=== PATIENT | female | born 1995 | race Two or more races ===

== ENCOUNTER 2018-02-17 21:54 | Emergency (ER) | payer SELFPAY ==
--- NOTE | 2018-02-17 22:03 | PDOC ---
Rapid Medical Evaluation Chief Complaint: Vaginal Bleeding Time Seen by Provider: 02/17/18 21:58 Medical Evaluation: 02/17/18 21:58 vaginal bleeding and spotting x 1 month has an IUD in place. patient also c/o insect bite to right foot. denies fever/ chills O:patient alert ox3. erythema to insect bite on right ankle A: insect bite; vaginal bleeding P: UA/ urine patient to the ER for further management of care.
[2018-02-17 22:04] VITALS: BP 100/60; PULSE 77; TEMP 99; BMI 36.2
[2018-02-17 22:21] LABS: HCG,QUALITATIVE URINE NEGATIVE; URINE APPEARANCE SLCLOUDY; URINE BILIRUBIN NEGATIVE (<2.0 mg/dL); URINE COLOR YELLOW; URINE GLUCOSE (UA) NEGATIVE (NEGATIVE); URINE KETONE NEGATIVE (NEGATIVE); URINE LEUK ESTERASE TRACE (NEGATIVE); URINE NITRITE NEGATIVE (NEGATIVE); URINE PROTEIN NEGATIVE (NEGATIVE)
--- NOTE | 2018-02-17 22:21 | PDOC ---
History of Present Illness - General Chief Complaint: Vaginal Bleeding Stated Complaint: VAGINAL BLEEDING,BITE Time Seen by Provider: 02/17/18 21:58 History Source: Patient Exam Limitations: No Limitations - History of Present Illness Travel History: No Initial Comments: 02/17/18 22:30 Patient came for evaluation of intermittent bleeding, irregular menses for the past few months. has been spotting now for approximately 20 days in the past 2 days has gotten 6 slightly worse needing to use 2-3 tampons daily. Denies cramping, fevers, possibility for . has been under a lot of stress, recently moved from [place] does not have physician or in states insurance. cousin came for evaluation for bleeding with and she thought she might as well get "checked out" 02/17/18 22:33 Timing/Duration: reports: getting worse, changing over time, intermittent Quality: reports: mild. denies: severe, cramping Abdominal Pain Onset Location: reports: generalized abdomen Pain Radiation: reports: no radiation Alleviating Factors: improves with: None Past History - Travel Traveled outside of the country in the last 30 days: No Close contact w/someone who was outside of country & ill: No - Past Medical History Home Medications: Ambulatory Orders NK [No Known Home Medication] 02/17/18 Asthma: Yes COPD: No Psychiatric Problems: Yes (bipolar, PTSD, anxiety) - Suicide/Smoking/Psychosocial Hx Smoking History: Current every day smoker Have you smoked in the past 12 months: Yes Number of Cigarettes Smoked Daily: 10 Information on smoking cessation initiated: No Hx Alcohol Use: No Drug/Substance Use Hx: No Substance Use Type: None Review of Systems - Review of Systems Able to Perform ROS?: Yes Is the patient limited Liberian proficient: Yes Constitutional: Yes: Symptoms Reported, See HPI, Malaise. No: Fever HEENTM: Yes: See HPI. No: Symptoms Reported Respiratory: Yes: Symptoms reported, See HPI, Cough ABD/GI: Yes: See HPI. No: Symptoms Reported, Abdominal Distended : Yes: See HPI. No: Symptoms Reported Musculoskeletal: Yes: Symptoms Reported, See HPI, Back Pain (chronic back pain) All Other Systems: Reviewed and Negative *Physical Exam - Vital Signs Last Vital Signs Temp Pulse Resp BP Pulse Ox 99.0 F 77 17 100/60 100 02/17/18 21:59 02/17/18 21:59 02/17/18 21:59 02/17/18 21:59 02/17/18 21:59 - Physical Exam General Appearance: Yes: Nourished, Appropriately Dressed. No: Apparent Distress HEENT: positive: EOMI, ALFONSO, Normal ENT Inspection, Normal Voice, TMs Normal, Pharynx Normal Neck: positive: Supple. negative: Tender, Trachea midline Respiratory/Chest: positive: Lungs Clear Cardiovascular: positive: Regular Rhythm Gastrointestinal/Abdominal: positive: Normal Bowel Sounds, Soft. negative: Tender Extremity: positive: Normal Capillary Refill, Normal Inspection, Normal Range of Motion Integumentary: positive: Normal Color, Dry, Warm Neurologic: positive: core setter II-XII NML intact, Fully Oriented, Alert, Normal Mood/ Affect, Normal Response, Motor Strength 5/5 Progress Note - Progress Note Progress Note: Urine negative, DysMenorrhea with IUD. Encouraged patient to follow- up with [facility] for IUD removal as potential source of dysmenorrhea *DC/Admit/Observation/Transfer Diagnosis at time of Disposition: Dysmenorrhea, unspecified - Discharge Dispostion Disposition: HOME Condition at time of disposition: Stable Admit: No - Referrals Referrals: [facility] [Provider Group] Ira Roblero MD [Staff Physician] - - Patient Instructions Printed Discharge Instructions: DI for Dysmenorrhea Additional Instructions: Rest, drink lots of fluids: Teas, water, soups Tata riley, carbonated beverages for the bubbles May try peppermint teas Avoid heavy , spicy or fatty foods until symptoms have resolved Continue [id number] medications for symptomatic relief Tylenol or Motrin for fever and pain Call for appointment with [facility]CH[facility] doctor for possible removal of IUD reevaluation of dysmenorrhea Followup with private physician in one to 2 days as needed Return to emergency department for worsened symptoms, recent bleeding, fevers, dehydration - Post Discharge Activity Forms/Work/School Notes: Back to Work
[2018-02-17 23:23] LABS: EPI CELLS RARE /HPF (FEW); URINE MUCUS FEW
== END 2018-02-17 22:49 | disposition home or self-care (01) ==
LOC: JERFT 21:54
DX: N94.6 Dysmenorrhea, unspecified (principal)
CPT/HCPCS: 81003; 81015; 84703; 99281-25